=== PATIENT | female | born 1995 | race Caucasian/White ===

== ENCOUNTER 2021-01-21 16:59 | Emergency (ER) | payer MEDICAID, SELFPAY ==
[2021-01-21] VITALS (12 sets, daily range): BP systolic 123–132; BP diastolic 47–71; PULSE 77–131; RESP 14–16; TEMP 36–36.9; O2SAT 97–100; BMI 27.6
--- NOTE | 2021-01-21 17:37 | US_ITS ---
STUDY: ULTRASOUND TRANSVAGINAL CLINICAL: Female, 25 years old. Heavy vaginal bleeding TECHNIQUE: Transvaginal COMPARISON: None. FINDINGS: Normal uterine size measuring 9.7 x 6.9 x 5.0 cm in maximal craniocaudal dimension, with possible arcuate morphology. There are no myometrial masses. Normal endometrial thickness measuring 5 mm. There are no endometrial masses. There is trace fluid in the endometrial cavity. Normal uterine cervix. Normal right ovary, measuring 2.8 x 2.1 x 1.8 cm. There is a 1.7 cm cyst. Normal left ovary, measuring 1.8 x 1.5 x 1.3 cm. There are multiple follicles without a dominant cyst. There is mild free fluid in the pelvis. US/Transvaginal Non- IMPRESSION: Right ovarian cyst. Arcuate uterus. Trace endometrial fluid. Mild pelvic free fluid. Electronically Signed: Blake Stahl DO at 20:22 EDT Tel [phone], Service support ,
[2021-01-21 17:46] LABS: Bacteria 0 SEEN /hpf (None Seen)
--- NOTE | 2021-01-21 17:51 | EDS_ITS ---
HPI <Dr. London Noriega DO - Last Filed: 01/25/21 07:00> HPI - Female History of Present Illness Chief Complaint: Vag Bleeding Informant: patient Narrative Narrative: Patient is a 25-year-old female who presents to the emergency department for heavy vaginal bleeding. This has been going on over the past 13 days. She has had issues with heavy vaginal bleeding before in the past but never to this severity. She states that she was going through approximately 10 pads per day. She is gone through 5 today. She was seen by her BRAKE HOLDER today and referred to the emergency department. She has been feeling short of breath as well as lightheaded. She is having moderate abdominal discomfort. She is on control. She states she is very regular with her menstrual period. She does have a history of 4 years ago that she carried to term without issue. She is on a blood thinning medications. No previous abdominal surgeries. No urinary issues. No change in bowel movements. She has been jose seous but not vomiting. She has been having some low back pain. Per the report from the BRAKE HOLDER she had a hemoglobin in the 8 range yesterday at outside hospital. PFSH <Dr. London Noriega DO - Last Filed: 01/25/21 07:00> [facility] Home Medications Control Pill 01/21/21 [History Last Taken Unknown] megestrol 40 mg PO BID #4 tab 01/21/21 [Rx Last Taken Unknown] Allergy/AdvReac Type Severity Reaction Status Date / Time No Known Allergies Allergy Verified 01/21/21 17:00 Social History Smoking Status: Never smoker ROS <Dr. London Noriega DO - Last Filed: 01/25/21 07:00> ROS ED Constitutional Constitutional ED: Denies chills or fever(s) Eyes Eyes: Denies change in vision ENT ENT ED: Denies epistaxis or rhinorrhea Cardiovascular Cardiovascular: Denies chest pain or palpitations Respiratory/Chest Respiratory/Chest: Reports dyspnea; Denies cough Gastrointestinal Gastrointestinal: Reports abdominal pain and nausea; Denies diarrhea or vomiting Genitourinary Genitourinary ED: Denies dysuria, hematuria or urinary frequency Musculoskeletal Musculoskeletal: Denies neck pain Integumentary Denies rash Neurologic Neurologic: Denies dizziness, headache(s) or weakness EXAM <Dr. London Noriega DO - Last Filed: 01/25/21 07:00> Physical Exam Const Vital Signs: 01/21/21 17:01 Temperature 98.1 F Temperature Source Temporal Pulse Rate 92 Respiratory Rate 16 Blood Pressure 123/69 H Blood Pressure Mean 87 Pulse Ox 97 Oxygen Delivery Method Room Air Positive well nourished and well developed General Appearance ED: well developed and NAD HEENT Reports normocephalic, head/scalp atraumatic and moist mucous membranes Eyes PERRL and EOMs intact bilaterally Neck supple Resp normal respiratory effort and clear to auscultation bilaterally Auscultation: Negative for rales, rhonchi or wheezes Cardio regular rate, regular rhythm and no murmurs GI normal to inspection, nondistended, normoactive bowel sounds GI Narrative: Mild tenderness to lower quadrants and suprapubic region. Palpation: soft; Negative for guarding or rebound tenderness present Back/Spine no CVA tenderness Extremity normal to inspection General Extremety ED: Negative for edema or tenderness General Extremity: Negative for edema Neuro no sensory deficits noted Sensorium / Orientation: alert Motor Exam: strength 5/5 throughout Psych mental status grossly normal Skin no rashes or lesions noted <Dr. Juan Hernandez MD - Last Filed: 01/25/21 07:44> Physical Exam Const Vital Signs: 01/21/21 17:01 Temperature 98.1 F Temperature Source Temporal Pulse Rate 92 Respiratory Rate 16 Blood Pressure 123/69 H Blood Pressure Mean 87 Pulse Ox 97 Oxygen Delivery Method Room Air MDM <Dr. London Noriega DO - Last Filed: 01/25/21 07:00> [facility] MDM Narrative Medical decision making narrative: Patient presents the ED for heavy vaginal bleeding. Upon arrival to the emergency department vital signs within normal limits. She is in no acute distress. She feels like she is having some active bleeding still. She was seen by her BRAKE HOLDER who did a pelvic exam on her earlier. They saw polyps on her cervix but otherwise was not having heavy bleeding at that time. Will check basic lab work as well as ultrasound of the pelvis. Patient's hemoglobin is low. I did speak with the on-call BRAKE HOLDER who requested that we give 2 units of packed red blood cells and start progesterone. She will be observed here in the emergency department. She did not have any active bleeding on her pelvic exam just prior to arrival in the ED. If she continues to have very slow bleeding or no bleeding she is safe for discharge. They are going to follow-up with her in 2 days. We will write a prescription for the progesterone to take twice a day. Return precautions are reviewed with her. She understands and is agreeable this plan. <Dr. Juan Hernandez MD - Last Filed: 01/25/21 07:44> MDM MDM Narrative Medical decision making narrative: I took over care of this pt after the above, while she received blood transfusion. Her bleeding tapered and was significantly improved compared with when she presented, so she was discharged home in stable condition with close outpt f/u per initially evaluating physician. Discharge Plan Triage Chief Complaint: Vag Bleeding ED Provider: Juan Hernandez Dx/Rx/DC Orders Clinical Impression: Abnormal vaginal bleeding, Anemia Instructions: ED Dysfunctional Uterine Bleeding Prescriptions: New megestrol 40 mg tablet 40 mg PO BID Qty: 4 RF: 0 No Action Control Pill RF: 0 Primary Care Provider: Care Physician,No Primary Referrals: Care Physician,No Primary [Primary Care Provider] - Tosha Kennedy [employer], [employer] [NON-STAFF] - 2 Days Activity Restrictions/Additional Instructions: Please follow-up with your BRAKE HOLDER on (2 days) Disposition Disposition: Home, self care Discharge Date/Time: 01/22/21 02:11
[2021-01-21 17:53] LABS: Absolute Lymphocyte Count 1.27 X10^3/uL (0.83-4.51); Absolute Neutrophil Count 4.7 X10^3/uL (2.0-7.7); Basophil# 0.02 X10^3/uL; Basophil% 0.3 % (0-1); Eosinophils% 1.5 % (0-5); Hematocrit 25.7 % (37-47); Lymphocyte # 1.27 X10^3/ul (0.83-4.51); Lymphocyte % 18.8 % (19-41); Mean Corp Hgb Conc 31.1 g/dL (32-36); Mean Corpuscular Hgb 25.8 pg (27.0-32.0); Mean Corpuscular Volume 82.9 fL (81-99); Monocyte# 0.65 X10^3/uL; Monocyte% 9.6 % (0-10); NRBC Flagged by Analyzer 0 % (0-5); Neutrophil # 4.68 X10^3/uL (2.7-7.7); Neutrophil % 69.4 % (47-70); Platelet Count 307 K/mm3 (150-450); RBC Distribution Width CV 13.6 % (11.6-14.6); White Blood Count 6.8 K/mm3 (4.4-11.0)
[2021-01-21 18:09] LABS: ALB/GLOB Ratio 0.8 RATIO (0.9-2.4); AST(SGOT) 15 U/L (15-37); Alanine Aminotransfer ALT/SGPT 21 U/L (13-56); Alkaline Phosphatase 67 U/L (45-117); Anion Gap 6 (5-15); BUN 10 mg/dL (7-18); BUN/Creat Ratio 14.1 RATIO (10-20); Calcium,Total 8.6 mg/dL (8.5-10.1); Chloride 111 mmol/L (98-107); Creatinine, Serum 0.71 mg/dL (0.55-1.02); EST Glomerular Filtration Rate 107 mL/min (>60); Est Glom Filt Rate - Afr Amer 129 mL/min (>60); Globulin 3.7 g/dL (2.2-4.2); Glucose 93 mg/dL (74-106); Potassium 3.2 mmol/L (3.5-5.1); Protein, Total 6.7 g/dL (6.4-8.2); Sodium Level 141 mmol/L (136-145)
[2021-01-21 18:14] LABS: Color, Urine Yellow (Yellow); Glucose, Dipstick Normal (Normal); Ketone-Dipstick Negative (Negative); Leukocyte Esterase-Dipstick Negative /ul (Negative); Nitrite-Dipstick Negative (Negative); Occult Blood-Urine 25 /ul (Negative); Protein-Dipstick Negative (Negative); Urine Bilirubin Dipstick Negative (Negative); Urine Clarity Clear (Clear); Urine Urobilinogen Normal (Normal)
[2021-01-21 18:16] LABS: Internal QC Validated? YES +Cl - CLEAR BKGD; Pregnancy, Serum, hCG Quali. NEGATIVE Negative
[2021-01-21 18:27] LABS: Mucous, Urine 1+ /hpf (<or=2+); Red Blood Cells-Urine 0-5 SEEN /hpf (0-5); Squamous Epithelial Cells - UA 0-5 SEEN /hpf (5-10); White Blood Cells 0 SEEN /hpf (0-5)
[2021-01-21] MEDS: Megestrol 40 MG Tablet PO (22:27)
[2021-01-22 00:14] VITALS: BP 133/65; PULSE 82; RESP 14; TEMP 36.6; O2SAT 99
[2021-01-22 01:15] VITALS: BP 124/76; PULSE 74; RESP 13; TEMP 36.8; O2SAT 98
[2021-01-22 01:56] VITALS: BP 117/39; PULSE 82; RESP 16; TEMP 36.4; O2SAT 99
[2021-01-22 02:03] VITALS: BP 172/67; PULSE 74; RESP 14; O2SAT 98
--- NOTE | 2021-01-22 02:05 | ED.RN ---
pt finished with blood transfusion and nd has gone 4 hours, 20 minutes sine her last pad/tampon change. Patient to bathroom and reports her bleeding is the same or a little better.
== END 2021-01-22 02:11 | disposition home or self-care (01) ==
PROVIDERS: Emergency Medicine; Emergency Provider Emergency Medicine
DX: N93.9 Abnormal uterine and vaginal bleeding, unspecified (principal); D64.9 Anemia, unspecified; R10.9 Unspecified abdominal pain; M54.5 Low back pain; Z79.3 Long term (current) use of hormonal contraceptives
CPT/HCPCS: 36430; 76830; 80053; 81001; 84703; 85025; 86850; 86900; 86901; 86920; 86922; 99284; J7030; P9016; A4216